=== PATIENT | female | born 1960 | race Caucasian/White ===

== ENCOUNTER → 2024-06-09 16:04 | Outpatient (REF) | payer BC, SELFPAY | LOC: MRI 3T 16:04 | PROVIDERS: ATTENDING PHYSICIAN Otolaryngology; FAMILY PHYSICIAN Family Medicine | DX: H90.A21 Sensorineural hearing loss, unilateral, right ear, with restricted hearing on the contralateral side (principal) | CPT/HCPCS: 70553; A9575 ==